=== PATIENT | female | born 2000 | race Caucasian/White ===

== ENCOUNTER 2020-12-24 12:58 | Outpatient (CLI) | payer OTHER, SELFPAY ==
--- NOTE | ~2020-12-24 | US_ITS ---
EXAMINATION: US OB <=14 wk fetus w TV DATE: 12/24/2020 13:42 INDICATION: Encounter for supervision of normal . Establish dating during first trimester. TECHNIQUE: Real-time pelvic ultrasound utilizing both a transvaginal and transabdominal probe was pe rformed. The interpreting radiologist was not present for the study. COMPARISON: None. FINDINGS: The uterus measures 10.1 x 8.6 x 7.6 cm. There is an intrauterine gestational sac. A yolk sac and fe radha pole are identified. The crown rump length measures 7.2 cm, which correlates with an estimated ge stational age of 13 weeks and 3 days. heart motion is identified measuring 154 beats per minute (bpm) by M-mode Doppler. The ovaries are not visualized. There is no free fluid in the pelvis. IMPRESSION: 1. Single living fetus with heart rate of 154 bpm. 2. Gestational age by ultrasound of 13 weeks 3 day(s) +/- 6 day(s) with ultrasound estimated date of delivery (DEEJAY) of 06/28/2021. Reviewed, dictated and finalized at location B. [facility] LE[facility]ER IMPRESSION: 1. Single living fetus with heart rate of 154 bpm. 2. Gestational age by ultrasound of 13 weeks 3 day(s) +/- 6 day(s) with ultras ound estimated date of delivery (DEEJAY) of 06/28/2021.
== END 2020-12-24 12:59 | disposition home or self-care (01) ==
PROVIDERS: PCP Obstetrics & Gynecology; Visit Provider Obstetrics & Gynecology
DX: Z34.91 Encounter for supervision of normal pregnancy, unspecified, first trimester (principal); Z3A.13 13 weeks gestation of pregnancy
CPT/HCPCS: 76801; 76817

== ENCOUNTER 2021-01-21 10:09 | Observation (INO) | payer OTHER, SELFPAY ==
--- NOTE | 2021-01-21 10:09 | OBADM ---
This patient, Leticia Lopes, admitted to the OB room [facility] for observation. Patient/family oriented to hospital policies and general routines including ID bracelet, bed and alarms, visiting hours, pain management, procedures, bathroom and other care routines, personal items, smoking policy, room service/diet, and visiting hours. Patient/Family are encouraged to report perceived risks to care and to ask questions if they do not understand what they are told or what they should do.
[2021-01-21 10:45] VITALS: BP 99/57; PULSE 72
[2021-01-21 10:46] VITALS: BP 96/55; PULSE 68
[2021-01-21 10:57] LABS: Add Urine Microscopic? NO; Appearance Urine Clear (Clear); Bilirubin Urine Negative (Negative); Blood Urine Negative (Negative); Color Urine Straw (Yellow); Glucose Urine UA Negative (Negative); Ketones Urine Negative (Negative); Leukocyte Esterase Ur Negative LEU/UL (NEGATIVE); Nitrate Urine Negative (Negative); Protein Urine Negative (Negative); Specific Grav Ur 1.018 (1.001-1.035); Urobilinogen Urine Negative mg/dL (<2.0)
[2021-01-21 11:01] VITALS: BP 94/58; PULSE 68
[2021-01-21 11:03] VITALS: BMI 22.9
--- NOTE | 2021-01-28 20:55 | PM.OBTRLD ---
OB - Triage/Final Diagnosis Visit Information Comments/Additional reasons for admission: I have assessed the risk for this patient, Leticia Lopes, and determined that she would benefit from observation care. Evaluation Laboratory results: Laboratory Tests 01/21/21 10:35 Urine Color Straw Urine Appearance Clear Urine pH 8.0 Ur Specific [place] 1.018 Urine Protein Negative Urine Glucose (UA) Negative Urine Ketones Negative Ur Blood (Man) Negative Urine Nitrate Negative Urine Bilirubin Negative Urine Urobilinogen Negative Ur Leukocyte Esterase Negative Final Diagnosis (1) Hyperemesis gravidarum: Code(s): O21.0 - Mild hyperemesis gravidarum Status: Acute
== END 2021-01-21 11:30 | disposition home or self-care (01) ==
PROVIDERS: Admitting Provider Obstetrics & Gynecology; Visit Provider Obstetrics & Gynecology
DX: O21.0 Mild hyperemesis gravidarum (principal); Z3A.17 17 weeks gestation of pregnancy
CPT/HCPCS: 81003; 87086; G0378; G0379

== ENCOUNTER 2021-02-06 10:57 | Outpatient (CLI) | payer OTHER, SELFPAY ==
--- NOTE | ~2021-02-06 | US_ITS ---
EXAMINATION: US OB /maternal detail DATE: 02/06/2021 12:40 INDICATION: Routine care. TECHNIQUE: Real-time ultrasound of the pelvis was performed. COMPARISON: Ultrasound 12/24/2020 FINDINGS: There is a single living fetus in vertex presentation. The placenta is anterior, 5.2 cm from the cer vix. heart rate is 159 beats per minute (bpm). The amniotic fluid index is 17.2 cm, which is no rmal. The following biometric data were obtained: Biparietal diameter (BPD): 4.3 cm; head circumference (HC): 16.4 cm; abdominal circumference (AC): 13 .3 cm; femur length (FL): 2.8 cm. These measurements are concordant. Estimated weight is 255 g +/- 38 g, which correlates with 7th percentile when 06/28/21 is used as estimated date of delivery. As single measurements, these parameters are each equal to the following estimated gestational ages: BPD: 19 weeks 0 days. HC: 19 weeks 1 days. AC: 18 weeks 6 days. FL: 18 weeks 4 days. estimated gestational age based solely on measurements from this exam is 18 weeks 6 days +/- 1 weeks 2 days. The head is not well evaluated due to positioning. The visualized portions of the spine are nor mal. The heart is normal. The diaphragm, stomach, kidneys, and bladder are normal. There are two umbi lical arteries to yield a 3-vessel cord. The cord insertion is normal. IMPRESSION: 1. Single living fetus in vertex presentation. 2. Small for gestational age. Estimated weight is 255 g +/- 38 g, which correlates with 7th per centile when 06/28/21 is used as estimated date of delivery. 3. head not well evaluated due to positioning. Otherwise normal anatomic survey. Reviewed, dictated and finalized at location A. IMPRESSION: 1. Single living fetus in vertex presentation. 2. Small for gestational age. Estimated weight is 255 g +/- 38 g, which c orrelates with 7th percentile when 06/28/21 is used as estimated date of delivery . 3. head not well evaluated due to positioning. Otherwise normal celio tomic survey.
== END 2021-02-06 10:58 | disposition home or self-care (01) ==
PROVIDERS: Visit Provider Obstetrics & Gynecology
DX: Z34.92 Encounter for supervision of normal pregnancy, unspecified, second trimester (principal); Z3A.18 18 weeks gestation of pregnancy
CPT/HCPCS: 76805

== ENCOUNTER 2021-05-18 21:08 | Observation (INO) | payer MEDICAID, SELFPAY ==
[2021-05-18] VITALS (27 sets, daily range): BP systolic 127–170; BP diastolic 77–112; PULSE 63–124; RESP 20–22; TEMP 36.5–36.6; O2SAT 98–100; BMI 29.6
[2021-05-18] MEDS: LACTATED RINGERS 1,000 ML 75 ML IV CONT (22:07)
[2021-05-18] MEDS: MAGNESIUM SULF 20GM/WATER500ML 500 ML 50 MG IV CONT (22:07)
[2021-05-18] MEDS: MAGNESIUM SULF 6 GM/WATER150ML 6 GM/150 ML BAG IVPB (22:07)
[2021-05-18 22:12] LABS: Basophils Absolute Auto 0.1 K/mm3 (0.0-0.1); Basophils Percent Auto 0.3 % (0.2-1.2); Eosinophils Absolute Auto 0.3 K/mm3 (0-0.3); Eosinophils Percent Auto 1.5 % (0-4.4); Hematocrit 36.1 % (37.0-47.0); Immature Granulocyte Absolute 0.11 K/mm3 (0.00-0.031); Immature Granulocyte Percent A 0.6 % (0-0.5); Lymphocytes Absolute Auto 3.21 K/mm3 (0.9-3.2); Lymphocytes Percent Auto 18.1 % (18.3-44.2); Mean Corpuscular HGB Conc 33.2 g/dl (32-36); Mean Corpuscular Hemoglobin 30.5 pg (26-34); Mean Corpuscular Volume 91.6 fl (80-100); Mean Platelet Volume 11.9 fl (7.4-10.4); Monocytes Absolute Auto 1.4 K/mm3 (0.1-0.6); Monocytes Percent Auto 7.9 % (2.6-8.5); Neutrophils Absolute Auto 12.7 K/mm3 (1.3-6.7); Neutrophils Percent Auto 71.6 % (45.5-73.1); Platelet Count Result 273 k/mm3 (150-375); Red Blood Count 3.94 M/mm3 (4.2-5.4); Red Cell Distribution Width 12.5 % (11.5-14.5); White Blood Count 17.8 K/mm3 (4.5-10.0)
[2021-05-18] MEDS: AMPICILLIN 2 GM/NS 100 ML 2 GM/100 ML BAG IVPB (22:15)
[2021-05-18 22:17] LABS: Add Urine Microscopic? YES; Amorphous Sediment Urine Few; Appearance Urine Clear (Clear); Bacteria Urine Trace /hpf; Bilirubin Urine Negative (Negative); Blood Urine 2+ (Negative); Color Urine Yellow (Yellow); Glucose Urine UA Negative (Negative); Ketones Urine Negative (Negative); Leukocyte Esterase Ur Trace LEU/UL (Negative); Mucus Urine Rare /lpf; Nitrate Urine Negative (Negative); Protein Urine 1+ mg/dL (Negative); RBC Urine 0-2 /hpf (0-2); Specific Grav Ur 1.012 (1.001-1.035); Squamous Epithelial Cell Urine Few /hpf (Few); Urobilinogen Urine Negative mg/dL (<2.0)
[2021-05-18 22:21] LABS: Creatinine Urine 53.9 mg/dL; Total Protein Urine Random 27 mg/dL
[2021-05-18 22:21] LABS: Alanine Aminotransferase 18 U/L (4-35); Albumin Level 3.7 g/dL (3.5-5.1); Alkaline Phosphatase 130 U/L (38-126); Anion Gap 7 mmol/L (8-16); Aspartate Amino Transferase 25 U/L (14-36); Bilirubin,Total 0.1 mg/dL (0.2-1.3); Blood Urea Nitrogen 9 mg/dL (7-17); Calcium 9.5 mg/dL (8.4-10.2); Carbon Dioxide 22 mmol/L (22-30); Chloride 108 mmol/L (98-107); Estimated CRCL calculation 118 ml/min; Estimated Glomerular Filt Rate > 60; Glucose 88 mg/dL (65-105); Sodium 137 mmol/L (137-145); Uric Acid 5.2 mg/dL (2.5-7.5)
--- NOTE | 2021-05-18 22:22 | PC.NURSE ---
Pt states she has had cramping all day starting at 0630. Pt seen Dr. Gordon today at office. Pt informed of cramping. Pt given precautions. Once home cramping has increased and noted spotting this evening. Pt had called labor and delivery unit and instructed to come in. pt denies leaking fluid. pt feeling movements.
--- NOTE | 2021-05-18 23:00 | PC.NURSE ---
Dr. Gordon on unit
[2021-05-18] MEDS: ONDANSETRON INJ 4 MG/2 ML VIAL IV PUSH (23:06)
--- NOTE | 2021-05-18 23:14 | PC.NURSE ---
Dr. Gordon to beside to see pt
--- NOTE | 2021-05-18 23:17 | PM.OBTRLD ---
OB - Triage/Final Diagnosis Visit Information Date of evaluation: 05/18/21 Reason for evaluation: threatened labor Comments/Additional reasons for admission: I have assessed the risk for this patient, Leticia Lopes, and determined that she would benefit from observation care. Evaluation Baseline heart rate: 133 Variability: Moderate (11-25) monitor accelerations: Present monitor decelerations: None Cervical dilation (cm): 2 Cervical effacement (%): 50 station: -2 Laboratory results: Laboratory Tests 05/18/21 05/18/21 05/18/21 22:02 22:02 22:02 WBC 17.8 H RBC 3.94 L Hgb 12.0 Hct 36.1 L MCV 91.6 MCH 30.5 MCHC 33.2 RDW 12.5 Plt Count 273 MPV 11.9 H Immature Gran % (Auto) 0.6 H Neut % (Auto) 71.6 Lymph % (Auto) 18.1 L [place] % (Auto) 7.9 Eos % (Auto) 1.5 Baso % (Auto) 0.3 Lymph # (Auto) 3.21 H [place] # (Auto) 1.4 H Eos # (Auto) 0.3 Baso # (Auto) 0.1 Abs Immat Gran (auto) 0.11 H Absolute Neuts (auto) 12.7 H Absolute Nucleated RBC 0.0 Nucleated RBC % 0.0 Sodium Potassium Chloride Carbon Dioxide Anion Gap BUN Creatinine Estim Creat Clear Calc Estimated GFR Glucose Uric Acid Calcium Total Bilirubin AST ALT Alkaline Phosphatase Total Protein Albumin Urine Color Yellow Urine Appearance Clear Urine pH 7.0 Ur Specific [place] 1.012 Urine Protein 1+ H Urine Glucose (UA) Negative Urine Ketones Negative Ur Blood (Man) 2+ H Urine Nitrate Negative Urine Bilirubin Negative Urine Urobilinogen Negative Leukocyte Esterase Rfl Trace H Urine RBC 0-2 Urine WBC 4-6 H Ur Squamous Epith Cells Few Amorphous Sediment Few H Urine Bacteria Trace Urine Mucus Rare U Random Total Protein 27 Urine Creatinine 53.9 Protein/Creat Ratio 2 0.50 H 05/18/21 22:03 WBC RBC Hgb Hct MCV MCH MCHC RDW Plt Count MPV Immature Gran % (Auto) Neut % (Auto) Lymph % (Auto) [place] % (Auto) Eos % (Auto) Baso % (Auto) Lymph # (Auto) [place] # (Auto) Eos # (Auto) Baso # (Auto) Abs Immat Gran (auto) Absolute Neuts (auto) Absolute Nucleated RBC Nucleated RBC % Sodium 137 Potassium 4.0 Chloride 108 H Carbon Dioxide 22 Anion Gap 7 L BUN 9 Creatinine 0.60 L Estim Creat Clear Calc 118 Estimated GFR > 60 Glucose 88 Uric Acid 5.2 Calcium 9.5 Total Bilirubin 0.1 L AST 25 ALT 18 Alkaline Phosphatase 130 H Total Protein 7.0 Albumin 3.7 Urine Color Urine Appearance Urine pH Ur Specific [place] Urine Protein Urine Glucose (UA) Urine Ketones Ur Blood (Man) Urine Nitrate Urine Bilirubin Urine Urobilinogen Leukocyte Esterase Rfl Urine RBC Urine WBC Ur Squamous Epith Cells Amorphous Sediment Urine Bacteria Urine Mucus U Random Total Protein Urine Creatinine Protein/Creat Ratio 2 Vital signs: Vital Signs - 24 hr 05/18/21 21:30 05/18/21 21:31 05/18/21 21:45 Temperature Pulse Rate 63 75 81 Respiratory Rate Blood Pressure 143/81 H 161/91 H 170/112 H Pulse Oximetry 05/18/21 21:47 05/18/21 22:00 05/18/21 22:12 Temperature 97.7 F 97.8 F Pulse Rate 65 66 Respiratory Rate 20 22 H Blood Pressure 142/86 H Pulse Oximetry 05/18/21 22:13 05/18/21 22:15 05/18/21 22:18 Temperature Pulse Rate 71 Respiratory Rate Blood Pressure 150/110 H Pulse Oximetry 99 98 05/18/21 22:23 05/18/21 22:35 05/18/21 22:40 Temperature Pulse Rate Respiratory Rate Blood Pressure Pulse Oximetry 100 98 99 05/18/21 22:45 05/18/21 22:50 05/18/21 22:51 Temperature Pulse Rate 99 Respiratory Rate Blood Pressure 141/95 H Pulse Oximetry 100 100 05/18/21 22:55 05/18/21 23:00 05/18/21 23:05 Temperature Pulse Rate 97 Respiratory Rate Blood Pressure 148/94 H Pulse Oximetry 100 100 100 05/18/21
--- NOTE | 2021-05-18 23:20 | PC.NURSE ---
Report to Fatuma BENJAMIN on [place] transport team
[2021-05-19] VITALS (10 sets, daily range): BP systolic 125–139; BP diastolic 77–94; PULSE 67–104; TEMP 36.4; O2SAT 96–100
--- NOTE | 2021-05-19 00:34 | PC.NURSE ---
Transport team here and to bedside for transfer. Report to Fatuma Brand
[2021-05-19 07:00] LABS: HIV 1/2 Ab P24 Ag Result Negative (Negative)
== END 2021-05-19 00:50 | disposition short-term general hospital (02) ==
LOC: ANHOBPP 21:15
PROVIDERS: Admitting Provider Obstetrics & Gynecology; Visit Provider Obstetrics & Gynecology
DX: O47.03 False labor before 37 completed weeks of gestation, third trimester (principal); O13.3 Gestational [pregnancy-induced] hypertension without significant proteinuria, third trimester; O99.283 Endocrine, nutritional and metabolic diseases complicating pregnancy, third trimester; E72.12 Methylenetetrahydrofolate reductase deficiency; O99.343 Other mental disorders complicating pregnancy, third trimester; F41.9 Anxiety disorder, unspecified; F31.9 Bipolar disorder, unspecified; Z3A.34 34 weeks gestation of pregnancy
CPT/HCPCS: 36415; 80053; 81001; 82570; 84156; 84550; 85025; 86703; 96365; 96366; 96368; 96375; G0378; G0379; G0432; J0290; J2405; J3475; J7120